=== PATIENT | male | born 1990 | race African-American/Black ===

== ENCOUNTER 2018-11-07 22:10 | Emergency (ER) | payer MEDICAID ==
[~2018-11-07] VITALS: Ht 167.6 cm; Wt 72.6 kg
[2018-11-07 22:12] VITALS: BP 116/74
--- NOTE | 2018-11-07 22:16 | NUR ---
ED Nurse Note: Patient presents with complaints of acute onset of shortness of breath.
[2018-11-07] MEDS: Ipratropium 0.02% Inh Soln 2.5ml UD HHN SCH ×3 (22:43→23:15)
[2018-11-07] MEDS: Albuterol ud Inhalation HHN SCH ×3 (22:43→23:15)
[2018-11-07 23:20] VITALS: BP 139/63
--- NOTE | 2018-11-07 23:40 | NUR ---
ED Nurse Note: Patient tolerated breathing treatment well, has no s/s of acute distress and is resting comfortably. vital signs are stable.
[2018-11-08] MEDS ORDERED: ACYCLOVIR800 MG ORAL (00:04)
[2018-11-08] MEDS ORDERED: ALBUTEROL SULF8.5 GM INH (00:04)
[2018-11-08] MEDS ORDERED: PREDNISONE20 MG ORAL (00:04)
[2018-11-08 00:15] VITALS: BP 139/63
--- NOTE | 2018-11-08 00:15 | NUR ---
ED Nurse Note: Patient cleared for discharge no s/s of respiratory distress, patient is ambulatory with steady gait. Departed with all personal belongings, ID band removed, IV removed. Patient verbalized understanding of discharge instructions. Patient called an [employer] for transport home.
--- NOTE | 2018-11-08 00:58 | Emergency Room Report ---
History of Present Illness General Chief Complaint: Dyspnea/Respdistress Source: Patient Present Illness HPI 28-year-old male presents ED for evaluation. Brought in by EMS for shortness of breath. Was in [employer] when he started to feel short of breath suddenly. Denies chest pain. Notes increased shortness of breath especially on the right side. Denies drug use. Denies smoking. Notes history of asthma. Notes runny nose, cough and congestion. Cough is dry. No other aggravating relieving factors. Denies any other associated symptoms Allergies: Coded Allergies: Dairy (Verified Allergy, Unknown, 11/07/18) Patient History Past Medical History: asthma Past Surgical History: none Pertinent Family History: none Social History: Denies: smoking, alcohol use, drug use Immunizations: UTD Reviewed Nursing Documentation: PMH: Agreed; PSxH: Agreed Nursing Documentation-PMH Past Medical History: No Stated History Review of Systems All Other Systems: negative except mentioned in HPI Physical Exam Vital Signs Date Time Temp Pulse Resp B/P (MAP) Pulse Ox O2 Delivery O2 Flow Rate FiO2 11/07/18 22:03 98.4 86 16 122/70 100 Room Air 11/07/18 22:44 21 Sp02 EP Interpretation: reviewed, normal General Appearance: no apparent distress, alert, GCS 15, non-toxic Head: normocephalic, atraumatic Eyes: bilateral eye normal inspection, bilateral eye PERRL ENT: hearing grossly normal, no angioedema, normal voice, TMs + canals normal, uvula midline, pharyngeal erythema Neck: full range of motion, supple/symm/no masses Respiratory: chest non-tender, speaking full sentences, wheezing Cardiovascular #1: regular rate, rhythm, no edema Cardiovascular #2: 2+ carotid (R), 2+ carotid (L), 2+ radial (R), 2+ radial (L) , 2+ dorsalis pedis (R), 2+ dorsalis pedis (L) Gastrointestinal: normal bowel sounds, non tender, soft, non-distended, no guarding, no rebound Rectal: deferred Genitourinary: normal inspection, no CVA tenderness Musculoskeletal: back normal, gait/station normal, normal range of motion, non- tender Neurologic: alert, oriented x3, responsive, motor strength/tone normal, sensory intact, speech normal Psychiatric: judgement/insight normal, memory normal, mood/affect normal, no suicidal/homicidal ideation Reflexes: 3+ bicep (R), 3+ bicep (L), 3+ tricep (R), 3+ tricep (L), 3+ knee (R) , 3+ knee (L) Skin: normal color, no rash, warm/dry, well hydrated Lymphatic: no adenopathy Medical Decision Making Diagnostic Impression: Primary Impression: Oral herpes Additional Impression: Bronchitis ER Course Hospital Course 28-year-old male presents to ED complaining of SOB Differential diagnoses include: URI, bronchitis, asthma/COPD, pneumonia Clinical course Patient placed on stretcher. After initial history and physical I ordered prednisone and nebulizer treatment. Chest x-rayno infiltrate, no pneumothorax, no other acute process Upon reassessment patient states cough and symptoms have improved. Findings consistent with bronchitis. Discussed findings with patient. Patient is also noting sore throat. States that he feels bumps on the back of his throat. Notes prior history of herpes. Feels like he may have a flareup of his herpes. Recent unprotected oral sex. We'll treat with acyclovir Safe for discharge close outpatient follow-up. We'll provide referrals Diagnosis - bronchitis, oral herpes Stable and discharged home with prescriptions for Rx prednisone, acyclovir, albuterol. Instructed to followup with PMD. Return to ED if symptoms recur or worsen Last Vital Signs Date Time Temp Pulse Resp B/P (MAP) Pulse Ox O2 Delivery O2 Flow Rate FiO2 11/07/18 23:30 87 18 100 Room Air 21 11/07/18 23:20 98.5 139/63 Status: improved Disposition: HOME, SELF-CARE Condition: Stable Scripts Albuterol Sulfate* (ALBUTEROL SULFATE MDI*) 8.5 Gm Hfa.aer.ad 2 PUFF INH Q6H, #1 EA 0 Refills Prov: Carmelo Cotto MD 11/08/18 Prednisone* (PREDNISONE*) 20 Mg Tablet 40 MG ORAL DAILY, #10 TAB Prov: Carmelo Cotto MD 11/08/18 Acyclovir* (ZOVIRAX*) 800 Mg Tablet 800 MG ORAL FIVE TIMES A DAY for 7 Days, TAB Prov: Carmelo Cotto MD 11/08/18 Referrals: NOT CHOSEN IPA/,REFERRING [facility] Patient Instructions: Acute Bronchitis, [id number] Carmelo Cotto MD Nov 08, 2018 00:58
--- NOTE | 2018-11-08 12:05 | Diagnostic Imaging Report ---
Indication: Cough Technique: One view of the chest Comparison: none Findings: Lungs and pleural spaces are clear. Heart size is normal Impression: No acute process This agrees with the preliminary interpretation provided by the emergency room physician
== END 2018-11-08 00:15 | disposition home or self-care (01) ==
LOC: EDBD 22:10 → EMR 22:35
DX: B00.89 Other herpesviral infection (principal); J45.909 Unspecified asthma, uncomplicated
CPT/HCPCS: 71045; 94640; 94664; 99284; J7512

== ENCOUNTER 2019-02-15 18:21 | Emergency (ER) | payer MEDICAID ==
[~2019-02-15] VITALS: Ht 172.7 cm; Wt 69.9 kg
[~2019-02-15 18:21] MED LIST: ACYCLOVIR800 MG ORAL; ALBUTEROL SULF8.5 GM INH; PREDNISONE20 MG ORAL
[2019-02-15 18:38] VITALS: BP 123/74
--- NOTE | 2019-02-15 18:38 | NUR ---
ED Nurse Note: Pt walked in the ER c/o bilateral foot pain. Pt injured L foot in September. Pain 10/10 merlyn. Ambulates without difficulty. Aox4, VSS. Will cont to monitor.
--- NOTE | 2019-02-15 18:38 | Emergency Room Report ---
History of Present Illness General Chief Complaint: Pain Source: Patient Present Illness HPI 28-year-old male with no significant past medical history here complaining of 1 day of bilateral foot pain after he walked 10 miles. Patient reports that he has no money to get a cab so he always walks and he is complaining of a burning sensation in bottom of both feet. Patient is wearing tight non-walking shoes. Denies pain radiation rating the pain 7 out of 10 has not taken over-the- counter medication pain as he does not have any denies tingling and numbness denies injury he reports that a year ago he broke his left foot however no recent twisting or injury to the foot. Denies all other injuries, chest pain, shortness of breath, palpitation and all other associated symptoms Allergies: Coded Allergies: Dairy (Verified Allergy, Unknown, 11/07/18) Patient History Past Medical History: see triage record Past Surgical History: unable to obtain Pertinent Family History: unable to obtain Immunizations: UTD Reviewed Nursing Documentation: PMH: Agreed; PSxH: Agreed Nursing Documentation-PMH Past Medical History: No History, Except For History Of Psychiatric Problem: Yes Review of Systems All Other Systems: negative except mentioned in HPI Physical Exam Vital Signs Date Time Temp Pulse Resp B/P (MAP) Pulse Ox O2 Delivery O2 Flow Rate FiO2 02/15/19 18:25 98.4 93 20 123/74 (90) 95 Room Air Sp02 EP Interpretation: reviewed, normal General Appearance: normal inspection, well appearing, no apparent distress Head: normocephalic, atraumatic Eyes: bilateral eye normal inspection, bilateral eye PERRL ENT: normal ENT inspection, hearing grossly normal Neck: normal inspection, full range of motion, supple, thyroid normal Respiratory: normal inspection, chest non-tender, lungs clear, no respiratory distress, no accessory muscle use, no wheezing Cardiovascular #1: normal inspection, regular rate, rhythm, no murmur, normal capillary refill Cardiovascular #2: 2+ dorsalis pedis (R), 2+ dorsalis pedis (L) Gastrointestinal: normal inspection, soft Musculoskeletal: back normal, digits/nails normal, gait/station normal, no calf tenderness, other - friction blisters both feet Neurologic: normal inspection, alert Psychiatric: normal inspection, judgement/insight normal Skin: normal color, no rash, other - friction blisters both feet Lymphatic: normal inspection, no adenopathy Medical Decision Making ROSAMARIA Attestation All my diagnosis and treatment plans were reviewed ad discussed with my supervising physician Dr. Velez Diagnostic Impression: Primary Impression: Friction blisters of sole of left foot Additional Impression: Friction blisters of sole of right foot ER Course 28-year-old male with no significant past medical history here complaining of 1 day of bilateral foot pain after he walked 10 miles. Patient reports that he has no money to get a cab so he always walks and he is complaining of a burning sensation in bottom of both feet. Patient is wearing tight non-walking shoes. Denies pain radiation rating the pain 7 out of 10 has not taken over-the- counter medication pain as he does not have any denies tingling and numbness denies injury he reports that a year ago he broke his left foot however no recent twisting or injury to the foot. Denies all other injuries, chest pain, shortness of breath, palpitation and all other associated symptoms Ddx considered but are not limited to: Friction blisters of swelling of both feet, cellulitis, foot sprain Vital signs: are WNL, pt. is afebrile H&PE are most consistent with: Friction blisters of swelling of both feet, ORDERS: wound clean and dress, ibuprofen, bactroban ED INTERVENTIONS: wound clean and dress DISCHARGE: At this time pt. is stable for d/c to home. Will provide printed patient care instructions, and any necessary prescriptions. Care plan and follow up instructions have been discussed with the patient prior to discharge. Last Vital Signs Date Time Temp Pulse Resp B/P (MAP) Pulse Ox O2 Delivery O2 Flow Rate FiO2 02/15/19 18:25 98.4 93 20 123/74 (90) 95 Room Air Disposition: HOME, SELF-CARE Condition: Stable Scripts Ibuprofen* (MOTRIN*) 600 Mg Tablet 600 MG ORAL Q8H PRN for For Pain, #30 TAB 0 Refills Prov: Juancho Durant 02/15/19 Mupirocin (MUPIROCIN) 15 Gm Cream..g. 1 APPLIC TOPIC THREE TIMES A DAY, #15 GM Prov: Juancho Durant 02/15/19 Patient Instructions: Blisters Additional Instructions: Wear correct shoes when you are walking applied medication as directed avoid walking for long distance keep legs elevated at home apply ice Juancho Durant Feb 15, 2019 18:38
[2019-02-15] MEDS ORDERED: MUPIROCIN15 GM TOPIC (18:39)
[2019-02-15] MEDS ORDERED: IBUPROFEN600 MG ORAL (18:39)
[2019-02-15 18:45] VITALS: BP 123/74
[2019-02-15] MEDS ORDERED: Bacitracin Oint UD TOPIC ONE (18:45)
--- NOTE | 2019-02-15 18:45 | NUR ---
ER DISCHARGE NOTE: Patient is cleared to be discharged per ERMD, pt is aox4, on room air, with stable vital signs. pt was given dc and prescription instructions, pt was able to verbalize understanding, pt id band removed. pt is able to ambulate with steady gait. pt took all belongings.
== END 2019-02-15 19:30 | disposition home or self-care (01) ==
LOC: EMR 18:59
DX: S90.822A Blister (nonthermal), left foot, initial encounter (principal); S90.821A Blister (nonthermal), right foot, initial encounter; X58.XXXA Exposure to other specified factors, initial encounter; Y92.9 Unspecified place or not applicable
CPT/HCPCS: 99282